=== PATIENT | female | born 1985 | race American Indian/Alaskan Native ===

== ENCOUNTER 2019-03-10 00:58 | Observation (INO) | payer OTHER ==
[2019-03-10] MEDS ORDERED: ASPIRIN PO ONE (01:21)
[2019-03-10] MEDS ORDERED: PEPCID IV ONE (01:49)
[2019-03-10] MEDS ORDERED: SUBLIMAZE IV ONE (01:49)
[2019-03-10] MEDS ORDERED: NITRO-BID 2% TP ONE (01:49)
[2019-03-10] MEDS ORDERED: ZOFRAN IV ONE (01:49)
--- NOTE | 2019-03-10 01:53 | Emergency Department Report ---
HPI - General Chief Complaint: Chest Pain Time Seen by Provider: 03/10/19 01:37 - HPI HPI: Room 7 The patient is a 34-year-old female presenting with chief complaint of chest is comfort. The patient states for the past 8 months she's had frequent chest discomfort described as a burning pain as well as a heaviness that sits on her chest. Patient states there has been shortness of breath, nausea/vomiting and weakness associated with this pain. Patient denies diaphoresis. Patient states she went to an urgent care facility last week and with subsequent sent to the ED. The patient states she was not admitted to the hospital but was given a referral to a cashier host/hostess which she has not yet seen. Patient currently gets her chest discomfort score of 9/10. Patient states she's never had a stress test or cardiac catheterization Location: [See above] Duration: [See above] Quality: [See above] Severity: [See above] Modifying factors: [see above] Context: [see above] Mode of transportation: [not driving] ED Past Medical Hx - Past Medical History Previous Medical History?: Yes Hx Hypertension: Yes Hx Diabetes: Yes Additional medical history: Frequent Abscess - Surgical History Past Surgical History?: Yes Additional Surgical History: LEEP, D & C, cataract surgery - Family History Family history: no significant - Social History Smoking Status: Never Smoker Substance Use Type: None (denies illicit drug use), Alcohol (occasional) - Medications Home Medications: Home Medications Medication Instructions Recorded Confirmed Last Taken Type glipiZIDE [glipiZIDE ER] 10 mg PO BID 11/17/13 11/17/13 Unknown History metFORMIN [Glucophage] 1,000 mg PO BID #60 tablet 11/18/13 Unknown Rx Lisinopril 10 mg PO DAILY 03/10/19 03/10/19 1 Day Ago History ~03/09/19 NovoLOG Mix 70/30 VIAL See Protocol SQ ACHS 03/10/19 03/10/19 1 Day Ago History ~03/09/19 ED Review of Systems ROS: Stated complaint: CP/HBP/LIGHTHEADED Other details as noted in HPI Constitutional: denies: diaphoresis Eyes: denies: eye pain ENT: denies: throat pain Respiratory: shortness of breath Cardiovascular: chest pain Endocrine: no symptoms reported Gastrointestinal: nausea, vomiting. denies: abdominal pain Genitourinary: denies: dysuria Musculoskeletal: denies: back pain Neurological: denies: headache Physical Exam - Physical Exam Vital Signs: Vital Signs 03/10/19 01:06 Temperature 98.0 F Pulse Rate 95 H Respiratory 18 Rate Blood Pressure 175/115 O2 Sat by Pulse 100 Oximetry Physical Exam: GENERAL: The patient is well-developed well-nourished female lying on stretcher not appearing to be in acute distress. [] HEENT: Normocephalic. Atraumatic. Extraocular motions are intact. Patient has moist mucous membranes. NECK: Supple. Trachea midline CHEST/LUNGS: Clear to auscultation. There is no respiratory distress noted. HEART/CARDIOVASCULAR: Regular. There is no tachycardia. There is no gallop rub or murmur. ABDOMEN: Abdomen is soft, nontender. Patient has normal bowel sounds. There is no abdominal distention. SKIN: There is no rash. There is no edema. There is no diaphoresis. NEURO: The patient is awake, alert, and oriented. The patient is cooperative. The patient has normal speech MUSCULOSKELETAL: There is no evidence of acute injury. ED Course Vital Signs 03/10/19 01:06 Temperature 98.0 F Pulse Rate 95 H Respiratory 18 Rate Blood Pressure 175/115 O2 Sat by Pulse 100 Oximetry ED Medical Decision Making - Lab Data Result diagrams: 03/10/19 02:03 03/10/19 02:03 Laboratory Tests 03/10/19 03/10/19 03/10/19 02:03 02:03 02:03 WBC 4.8 RBC 4.48 Hgb 13.0 Hct 38.1 MCV 85 MCH 29 MCHC 34 RDW 13.5 Plt Count 239 Lymph % (Auto) 36.2 H [place] % (Auto) 9.1 H Eos % (Auto) 1.7 Baso % (Auto) 1.0 Lymph # 1.7 [place] # 0.4 Eos # 0.1 Baso # 0.1 Seg Neutrophils % 52.0 Seg Neutrophils # 2.5 Sodium 132 L Potassium 3.9 Chloride 98.8 Carbon Dioxide 20 L Anion Gap 17 BUN 22 H Creatinine 0.9 Estimated GFR > 60 BUN/Creatinine Ratio 24 Glucose 326 H Calcium 8.7 Troponin T < 0.010 HCG, Qual Negative - EKG Data -: EKG Interpreted by Oh EKG shows normal: sinus rhythm Rate: normal - EKG Data When compared to previous EKG there are: previous EKG unavailable Interpretation: nonspecific ST-T wave alex (T-wave inversion in lead V2) - Radiology Data Radiology results: image reviewed (chest x-ray) interpreted by me: Chest x-ray-no focal infiltrates, no pneumothorax - Differential Diagnosis GERD, ACS, pericarditis, Critical care attestation.: If time is entered above; I have spent that time in minutes in the direct care of this critically ill patient, excluding procedure time. ED Disposition Clinical Impression: Chest pain Disposition: OP ADMIT IP TO THIS HOSP Is pt being admited?: Yes Does the pt Need Aspirin: Yes Condition: Fair Instructions: Chest Pain (ED) Referrals: HYACINTH KITCHEN MD [Primary Care Provider] - 3-5 Days Time of Disposition: 02:52 (hospitalist paged (Dr. Maricruz Lockett))
[2019-03-10 02:32] LABS: Basophils # (Auto) 0.1 K/mm3 (0.0-0.1); Eosinophils # (Auto) 0.1 K/mm3 (0.0-0.4); Eosinophils % (Auto) 1.7 % (0.0-4.3); Hematocrit 38.1 % (30.3-42.9); Lymphocytes # (Auto) 1.7 K/mm3 (1.2-5.4); Lymphocytes % (Auto) 36.2 % (13.4-35.0); Mean Corpuscular HGB Conc 34 % (30-34); Mean Corpuscular Volume 85 fl (79-97); Monocytes # (Auto) 0.4 K/mm3 (0.0-0.8); Monocytes % (Auto) 9.1 % (0.0-7.3); Platelet Count 239 K/mm3 (140-440); Red Blood Count 4.48 M/mm3 (3.65-5.03); Red Cell Distribution Width 13.5 % (13.2-15.2)
[2019-03-10 02:44] LABS: BUN/Creatinine Ratio 24; Blood Urea Nitrogen 22 mg/dL (7-17); Calcium 8.7 mg/dL (8.4-10.2); Hemolysis Index 34
--- NOTE | 2019-03-10 03:20 | XRay Report ---
PROCEDURE: XR CHEST 1V AP TECHNIQUE: Chest radiograph single view. HISTORY: Chest Pain COMPARISONS: None . FINDINGS: Heart: Normal. Mediastinum/Vessels: Normal. Lungs/Pleural space: Normal. Bony thorax: No acute osseous abnormality. Life support devices: None. IMPRESSION: No acute cardiopulmonary abnormality. This document is electronically signed by Raheel Ibarra MD., March 10 2019 03:18:15 AM ET
[2019-03-10] MEDS ORDERED: SODIUM CHLORIDE FLUSH SYRINGE 10 ML IV PRN (03:58)
[2019-03-10] MEDS ORDERED: ZOFRAN IV PRN (03:58)
[2019-03-10] MEDS ORDERED: TYLENOL PO PRN (03:58)
[2019-03-10] MEDS ORDERED: PERCOCET 5/325 PO PRN (03:58)
--- NOTE | 2019-03-10 04:06 | History and Physical Report ---
History of Present Illness Date of examination: 03/10/19 History of present illness: 34 year old woman with history of hypertension, diabetes comes to the emergency room with complaints of pain located in the epigastric area which he describes a sharp, burning sensation, intermittent, 5 minutes, radiating down to do her stomach, intensity 5/10, cannot identify exacerbating relating factors. No diaphoresis or palpitation Review of systems Constitutional: no weight loss, chills, fever Ears, eyes, nose, mouth and throat: no nasal congestion, no nasal discharge, no sinus pressure, no vision change, no red eye. Neck: No neck pain or rigidity. Cardiovascular: no palpitations, chest pain Respiratory: no cough, shortness of breath Gastrointestinal: no hematochezia, abdominal pain Genitourinary : no frequency , no hematuria Musculoskeletal: no joint swelling or muscle ache Integumentary: no rash, no pruritis Neurological: no parathesias, no focal weakness Endocrine: no cold or heat intolerance, no polyuria or polydipsia Hematologic/Lymphatic: no easy bruising, no easy bleeding, no gland swelling Allergic/Immunologic: no urticaria, no angioedema. PAST MEDICAL HISTORY: hypertension, diabetes PAST SURGICAL HISTORY: SOCIAL HISTORY: +alcohol, marijuana, no tobacco FAMILY HISTORY: Hypertension Medications and Allergies Allergies Allergy/AdvReac Type Severity Reaction Status Date / Time No Known Allergies Allergy Verified 11/17/13 22:15 Home Medications Medication Instructions Recorded Confirmed Last Taken Type glipiZIDE [glipiZIDE ER] 10 mg PO BID 11/17/13 03/10/19 1 Day Ago History ~03/09/19 metFORMIN [Glucophage] 1,000 mg PO BID #60 tablet 11/18/13 03/10/19 1 Day Ago Rx ~03/09/19 Lisinopril 10 mg PO DAILY 03/10/19 03/10/19 1 Day Ago History ~03/09/19 NovoLOG Mix 70/30 VIAL See Protocol SQ ACHS 03/10/19 03/10/19 1 Day Ago History ~03/09/19 Active Meds: Active Medications Acetaminophen (Tylenol) 650 mg PO Q4H PRN PRN Reason: Pain MILD(1-3)/Fever >100.5/NORRIS Enoxaparin Sodium (Lovenox) 30 mg SUB-Q QDAY ILENE Ondansetron HCl (Zofran) 4 mg IV Q8H PRN PRN Reason: Nausea And Vomiting Oxycodone/Acetaminophen (Percocet 5/325) 1 tab PO Q6H PRN PRN Reason: Pain, Moderate (4-6) Sodium Chloride (Sodium Chloride Flush Syringe 10 Ml) 10 ml IV BID ILENE Sodium Chloride (Sodium Chloride Flush Syringe 10 Ml) 10 ml IV PRN PRN PRN Reason: LINE FLUSH Exam - Physical Exam Narrative exam: General Apperance: The patient lying in bed, breathing comfortable HEENT: Normocephalic, atraumatic. Pupils equally round and reactive to light, EOMI, no sclericterus or JVD or thyromegaly or nodule. , no carotid bruit, mucous membranes moist, no exudate or erythema Heart: S1-S2, regular is rhythm Lungs: Clear to auscultation bilaterally, breathing comfortable Abdomen: Positive bowel sounds, soft, nontender, nondistended, no organomegaly Extremities: No edema cyanosis clubbing Skin: no rash, nodule, warm and dry Neuro: cranial nerves 2-12 intact, speech is fluent, motor/sensory intact - Constitutional Vitals: Temp Pulse Resp BP Pulse Ox 98.0 F 92 H 17 141/90 95 03/10/19 01:06 03/10/19 03:30 03/10/19 03:30 03/10/19 03:30 03/10/19 03:30 Results - Labs CBC & Chem 7: 03/10/19 04:07 03/10/19 02:03 Labs: Abnormal lab results 03/10/19 03/10/19 Range/Units 02:03 02:03 Lymph % (Auto) 36.2 H (13.4-35.0) % [place] % (Auto) 9.1 H (0.0-7.3) % Sodium 132 L (137-145) mmol/L Carbon Dioxide 20 L (22-30) mmol/L BUN 22 H (7-17) mg/dL Glucose 326 H (65-100) mg/dL - Imaging and Cardiology EKG: image reviewed Chest x-ray: report reviewed Assessment and Plan Assessment Chest pain Hypertension Diabetes Hyponatremia Plan Recommend medicine Check cardiac enzymes, stress test check fingersticks, start initiate insulin sliding scale Start fluid, Percocet, aspirin, DVT prophalaxis
[2019-03-10] MEDS ORDERED: D50W (25GM) Syringe IV PRN (04:08)
[2019-03-10 04:23] LABS: Basophils % (Auto) 0.4 % (0.0-1.8); Eosinophils # (Auto) 0.1 K/mm3 (0.0-0.4); Hematocrit 35.7 % (30.3-42.9); Hemoglobin 12.1 gm/dl (10.1-14.3); Lymphocytes # (Auto) 2.1 K/mm3 (1.2-5.4); Lymphocytes % (Auto) 39.9 % (13.4-35.0); Mean Corpuscular HGB Conc 34 % (30-34); Mean Corpuscular Volume 85 fl (79-97); Monocytes # (Auto) 0.4 K/mm3 (0.0-0.8); Monocytes % (Auto) 8.6 % (0.0-7.3); Platelet Count 229 K/mm3 (140-440); Red Blood Count 4.18 M/mm3 (3.65-5.03); Red Cell Distribution Width 13.5 % (13.2-15.2)
[2019-03-10 04:53] LABS: BUN/Creatinine Ratio 23; Blood Urea Nitrogen 21 mg/dL (7-17); Calcium 8.7 mg/dL (8.4-10.2); Hemolysis Index 3
[2019-03-10] MEDS ORDERED: NACL 0.45% 1000 ML 1,000 ML IV SCH (05:00)
[2019-03-10 06:30] LABS: Creatine Kinase MB 2.5 ng/mL (0.0-4.0)
[2019-03-10] MEDS: HumaLOG SUB-Q SCH ×2 (08:08→12:43)
[2019-03-10] MEDS ORDERED: BABY ASPIRIN PO SCH (10:00)
[2019-03-10] MEDS ORDERED: SODIUM CHLORIDE FLUSH SYRINGE 10 ML IV SCH (10:00)
[2019-03-10] MEDS ORDERED: LOVENOX SUB-Q SCH ×2 (10:00)
[2019-03-10 11:43] VITALS: BP 140/94
--- NOTE | 2019-03-10 13:51 | Discharge Summary ---
Providers - Providers Date of Admission: 03/10/19 03:58 Date of discharge: 03/10/19 Attending physician: DANYEL WILSON Primary care physician: [facility] MD PETER Hospitalization Condition: Fair Hospital course: Patient is 34 yo presented with chest pain. She was seen in ED. Her cardiac enzymes were normal. She was admitted to rule out acute coronary syndrome.Stress test done later same day was normal. Chest pain due to GERD. She was then discharged home. Disposition: - TO HOME OR SELFCARE - Discharge Diagnoses (1) HTN (hypertension) Status: Acute (2) Diabetes mellitus type 2 in obese Status: Acute (3) GERD (gastroesophageal reflux disease) Status: Acute (4) Chest pain Status: Acute Core Measure Documentation - Palliative Care Palliative Care/ Comfort Measures: Not Applicable - Core Measures Any of the following diagnoses?: none Exam - Constitutional Vitals: Temp Pulse Resp BP Pulse Ox 98.0 F 84 18 140/94 98 03/10/19 11:27 03/10/19 06:20 03/10/19 11:27 03/10/19 11:27 03/10/19 11:06 Plan Activity: no restrictions Diet: low fat, low cholesterol, low salt Additional Instructions: 1.Follow up with PCP or Darius zuñiga in 1 week. 2.Follow up with Dr. Steven Stokes, GI in 1 week Follow up with: DARIUS KITCHEN MD [Primary Care Provider] - 3-5 Days Prescriptions: Omeprazole 20 mg PO DAILY #30 capsule.
--- NOTE | 2019-03-11 00:41 | Treadmill Report ---
EXERCISE STRESS TEST REPORT The patient exercised for 8 minutes of a Az protocol, reaching stage 3 and achieving 9 mets. Peak heart rate was 150 beats per minute. Peak blood pressure 160 mmHg systolic. There was no chest pain. Test was stopped for fatigue. Baseline ECG was sinus rhythm. With exercise, there are no ST changes of ischemia. No significant dysrhythmias were noted. CONCLUSION: 1. Above average exercise capacity. 2. No chest pain. 3. No ST changes of ischemia. 4. No significant dysrhythmias. 5. This is a normal exercise ECG test. JOB# [id number] CA/NTS
== END 2019-03-10 15:43 | disposition home or self-care (01) ==
LOC: ED 00:58 → 4A 03:58
PROVIDERS: ADMIT Internal Medicine; ATTEND Internal Medicine
DX: R07.89 Other chest pain (principal); I10 Essential (primary) hypertension; E11.9 Type 2 diabetes mellitus without complications; E87.1 Hypo-osmolality and hyponatremia; Z98.890 Other specified postprocedural states
CPT/HCPCS: 36415; 71045; 80048; 82550; 82553; 82962; 84484; 84703; 85025; 93005; 93010; 93017; 96372; 96374; 96375; 99284; G0378; J2405; J3010; J1815

== ENCOUNTER 2021-06-03 12:52 | Emergency (ER) | payer OTHER ==
--- NOTE | 2021-06-03 15:14 | Emergency Department Report ---
- General Chief complaint: Skin/Abscess/Foreign Body Stated complaint: LEFT LEG PAIN/SWOLLEN Time Seen by Provider: 06/03/21 15:00 Source: patient Mode of arrival: Ambulatory Limitations: No Limitations - History of Present Illness Initial comments: 36-year-old female presents to the ER today with complaints of a abscess to her left thigh. She states that it started a small a few days ago has since increased in size and has become more painful. She reports associated erythema and some warmth to the area. She denies any drainage. Patient states that she has had abscesses in the past because back then she had uncontrollable diabetes. She states that she had stopped getting abscesses when she had gone her blood sugar under control, but in the past few months she has been under a lot of stress with recent loss of family members and has not been controlling her blood sugars as well. She denies any fever at home. She states that she is a type II diabetic, currently being treated with insulin and oral medications. She states that she did not check her blood sugar this morning. complaint: abscess/boil -: days(s) - Related Data Home Medications Medication Instructions Recorded Confirmed Last Taken glipiZIDE [glipiZIDE ER] 10 mg PO BID 11/17/13 03/10/19 1 Day Ago ~03/09/19 Lisinopril 10 mg PO DAILY 03/10/19 03/10/19 1 Day Ago ~03/09/19 NovoLOG Mix 70/30 VIAL See Protocol SQ ACHS 03/10/19 03/10/19 1 Day Ago ~03/09/19 Previous Rx's Medication Instructions Recorded Last Taken Type metFORMIN [Glucophage] 1,000 mg PO BID #60 tablet 11/18/13 1 Day Ago Rx ~03/09/19 Omeprazole 20 mg PO DAILY #30 capsule. 03/10/19 Unknown Rx HYDROcodone/APAP 5-325 [[place] 1 each PO Q6HR PRN #12 tablet 06/03/21 Unknown Rx 5/325] Ibuprofen [Motrin] 600 mg PO Q8H PRN #30 tablet 06/03/21 Unknown Rx Sulfamethoxazole/Trimethoprim 1 each PO BID #20 tablet 06/03/21 Unknown Rx [Bactrim DS TAB] cephALEXin [Keflex] 500 mg PO Q6HR #40 capsule 06/03/21 Unknown Rx Allergies Allergy/AdvReac Type Severity Reaction Status Date / Time No Known Allergies Allergy Verified 11/17/13 22:15 Abscess Boil HPI - HPI Chief Complaint: Skin/Abscess/Foreign Body Stated Complaint: LEFT LEG PAIN/SWOLLEN Time Seen by Provider: 06/03/21 15:00 Home Medications: Home Medications Medication Instructions Recorded Confirmed Last Taken glipiZIDE [glipiZIDE ER] 10 mg PO BID 11/17/13 03/10/19 1 Day Ago ~03/09/19 Lisinopril 10 mg PO DAILY 03/10/19 03/10/19 1 Day Ago ~03/09/19 NovoLOG Mix 70/30 VIAL See Protocol SQ ACHS 03/10/19 03/10/19 1 Day Ago ~03/09/19 Previous Rx's Medication Instructions Recorded Last Taken Type metFORMIN [Glucophage] 1,000 mg PO BID #60 tablet 11/18/13 1 Day Ago Rx ~03/09/19 Omeprazole 20 mg PO DAILY #30 capsule. 03/10/19 Unknown Rx HYDROcodone/APAP 5-325 [[place] 1 each PO Q6HR PRN #12 tablet 06/03/21 Unknown Rx 5/325] Ibuprofen [Motrin] 600 mg PO Q8H PRN #30 tablet 06/03/21 Unknown Rx Sulfamethoxazole/Trimethoprim 1 each PO BID #20 tablet 06/03/21 Unknown Rx [Bactrim DS TAB] cephALEXin [Keflex] 500 mg PO Q6HR #40 capsule 06/03/21 Unknown Rx Allergies/Adverse Reactions: Allergies Allergy/AdvReac Type Severity Reaction Status Date / Time No Known Allergies Allergy Verified 11/17/13 22:15 ED Review of Systems ROS: Stated complaint: LEFT LEG PAIN/SWOLLEN Other details as noted in HPI Constitutional: denies: chills, fever Eyes: denies: eye pain, eye discharge, vision change ENT: denies: ear pain, throat pain, dental pain, hearing loss, epistaxis Respiratory: denies: cough, orthopnea, shortness of breath, SOB with exertion, SOB at rest, wheezing Cardiovascular: denies: chest pain, palpitations, dyspnea on exertion, edema, syncope, paroxysmal nocturnal dyspnea Gastrointestinal: denies: abdominal pain, nausea, vomiting, diarrhea, constipation, hematemesis, melena, hematochezia Genitourinary: denies: urgency, dysuria, frequency, hematuria, discharge, abnormal menses, dyspareunia Musculoskeletal: myalgia. denies: back pain, joint swelling, arthralgia Skin: rash, other (abscess left thigh). denies: lesions, pruritus Neurological: denies: headache, weakness, paresthesias, confusion, abnormal gait, vertigo Psychiatric: denies: anxiety, depression, auditory hallucinations, visual hallucinations, homicidal thoughts Hematological/Lymphatic: denies: easy bleeding, easy bruising ED Past Medical Hx - Past Medical History Hx Hypertension: Yes Hx Diabetes: Yes Additional medical history: Frequent Abscess - Surgical History Past Surgical History?: Yes Additional Surgical History: LEEP, D & C, cataract surgery - Social History Smoking Status: Current Every Day Smoker - Medications Home Medications: Home Medications Medication Instructions Recorded Confirmed Last Taken Type glipiZIDE [glipiZIDE ER] 10 mg PO BID 11/17/13 03/10/19 1 Day Ago History ~03/09/19 metFORMIN [Glucophage] 1,000 mg PO BID #60 tablet 11/18/13 03/10/19 1 Day Ago Rx ~03/09/19 Lisinopril 10 mg PO DAILY 03/10/19 03/10/19 1 Day Ago History ~03/09/19 NovoLOG Mix 70/30 VIAL See Protocol SQ ACHS 03/10/19 03/10/19 1 Day Ago History ~03/09/19 Omeprazole 20 mg PO DAILY #30 capsule. 03/10/19 Unknown Rx HYDROcodone/APAP 5-325 [[place] 1 each PO Q6HR PRN #12 tablet 06/03/21 Unknown Rx 5/325] Ibuprofen [Motrin] 600 mg PO Q8H PRN #30 tablet 06/03/21 Unknown Rx Sulfamethoxazole/Trimethoprim 1 each PO BID #20 tablet 06/03/21 Unknown Rx [Bactrim DS TAB] cephALEXin [Keflex] 500 mg PO Q6HR #40 capsule 06/03/21 Unknown Rx ED Physical Exam - General Limitations: No Limitations General appearance: alert, in no apparent distress - Head Head exam: Present: atraumatic, normocephalic, normal inspection - Eye Eye exam: Present: normal appearance, PERRL, EOMI Pupils: Present: normal accommodation - ENT ENT exam: Present: normal exam, mucous membranes moist - Neck Neck exam: Present: normal inspection, full ROM - Respiratory Respiratory exam: Present: normal lung sounds bilaterally. Absent: respiratory distress, wheezes, rales, rhonchi - Cardiovascular Cardiovascular Exam: Present: regular rate, normal rhythm, normal heart sounds - GI/Abdominal GI/Abdominal exam: Present: soft. Absent: distended, tenderness, guarding, rebound - Extremities Exam Extremities exam: Present: other (erythematous, indurated, with central pus fill blister but no palpable fluctuance noted distal anterior lateral left thigh. Th ere is no streaking redeness or significant lymphangitis) - Neurological Exam Neurological exam: Present: alert, oriented X3, CN II-XII intact, normal gait - Psychiatric Psychiatric exam: Present: normal affect, normal mood ED Course Vital Signs 06/03/21 06/03/21 14:17 17:23 Temperature 99.1 F 98.3 F Pulse Rate 115 H 105 H Respiratory 15 18 Rate Blood Pressure 157/99 130/93 O2 Sat by Pulse 100 100 Oximetry ED Medical Decision Making - Lab Data Result diagrams: 06/03/21 15:38 06/03/21 15:38 - Medical Decision Making Patient BS improving after IV fluids, and also she admitted that she hasn't taken any of her diabetic medications today. No evidence of DKA today. Her wbc is also normal. She has remained afebriled and her HR and BP improved. She is not toxic or ill-appearing. She is not in any significant distress. She is neurologically intact. She has a ~6cm x4cm cellulitic/indurated area to distal left thigh but no apparent fluctuance, no streaking or significant lymphangitis. I&D not indicated at this time. Discussed all lab results with patient. Discussed with her the importance of being compliant with her her diabetic medication daily. Also recommend that she take some medication insulin she gets home. She will be started on Keflex and Bactrim and also recommend doing warm compresses and elevating her leg as often as possible. Patient expressed understanding of all instructions and agree with plan. Patient stable at time of discharge - Differential Diagnosis DKA, sepsis, Cellulitis, abscess Critical care attestation.: If time is entered above; I have spent that time in minutes in the direct care of this critically ill patient, excluding procedure time. ED Disposition Clinical Impression: Abscess of left thigh, Diabetes mellitus type 2 in obese Disposition: HOME / SELF CARE / HOMELESS Is pt being admited?: No Does the pt Need Aspirin: No Condition: Stable Instructions: Skin Abscess, Type 2 Diabetes Mellitus, Self Care, Adult, [id number], Diabetes Mellitus Type 2 in Adults (ED) Additional Instructions: I recommend that you take the Bactrim and the Keflex as prescribed. Recommend that you take your insulin and your oral medication for your diabetes as soon as you get home tonight. Recommend that you do warm compresses 2-3 times per day to the area. Take the hydrocodone and ibuprofen as prescribed. Elevate your leg as often as possible. Follow-up closely with your primary care doctor. Return to the ER if your symptoms changes or worsens in any way. Prescriptions: Sulfamethoxazole/Trimethoprim [Bactrim DS TAB] 1 each PO BID #20 tablet cephALEXin [Keflex] 500 mg PO Q6HR #40 capsule Ibuprofen [Motrin] 600 mg PO Q8H PRN #30 tablet PRN Reason: Pain HYDROcodone/APAP 5-325 [[place] 5/325] 1 each PO Q6HR PRN #12 tablet PRN Reason: Pain Referrals: PRIMARY CARE,MD [Primary Care Provider] - 3-5 Days Forms: Work/School Release Form(ED) Time of Disposition: 19:32
[2021-06-03] MEDS ORDERED: KETOROLAC 30 MG/1 ML INJ IV ONE (15:20)
[2021-06-03] MEDS ORDERED: SODIUM CHLORIDE 0.9% 1000 ML 1,000 ML IV ONE (15:31)
[2021-06-03 16:06] LABS: Basophils % (Auto) 0.3 % (0.0-1.8); Eosinophils % (Auto) 0.5 % (0.0-4.3); Hematocrit 39.9 % (30.3-42.9); Hemoglobin 13.7 gm/dl (10.1-14.3); Lymphocytes # (Auto) 1.5 K/mm3 (1.2-5.4); Lymphocytes % (Auto) 19.1 % (13.4-35.0); Mean Corpuscular HGB Conc 34 % (30-34); Mean Corpuscular Volume 84 fl (79-97); Monocytes # (Auto) 0.5 K/mm3 (0.0-0.8); Platelet Count 283 K/mm3 (140-440); Red Blood Count 4.73 M/mm3 (3.65-5.03); Red Cell Distribution Width 13.1 % (13.2-15.2)
[2021-06-03 16:25] LABS: Alanine Aminotransferase 10 units/L (7-56); Albumin 3.5 g/dL (3.9-5); BUN/Creatinine Ratio 17; Blood Urea Nitrogen 15 mg/dL (7-17); Hemolysis Index 1
[2021-06-03 17:35] VITALS: BP 130/93
== END 2021-06-03 19:58 | disposition home or self-care (01) ==
LOC: ED 12:52
DX: L02.416 Cutaneous abscess of left lower limb (principal); E11.8 Type 2 diabetes mellitus with unspecified complications; E66.9 Obesity, unspecified; I10 Essential (primary) hypertension; Z98.890 Other specified postprocedural states; F17.200 Nicotine dependence, unspecified, uncomplicated
CPT/HCPCS: 36415; 80053; 82962; 85025; 96361; 96374; 99283; J1885; J7030

== ENCOUNTER 2022-01-10 17:30 | Emergency (ER) | payer SELFPAY ==
[2022-01-10] MEDS ORDERED: ASPIRIN 81 MG TAB CHEW PO ONE (18:33)
[2022-01-10] MEDS ORDERED: SODIUM CHLORIDE 0.9% 1000 ML 1,000 ML IV ONE (18:33)
[2022-01-10] MEDS ORDERED: MORPHINE 2 MG/1 ML INJ IV ONE (18:35)
[2022-01-10 19:20] LABS: Basophils % (Auto) 0.5 % (0.0-1.8); Eosinophils # (Auto) 0.1 K/mm3 (0.0-0.4); Eosinophils % (Auto) 1.3 % (0.0-4.3); Hematocrit 36.8 % (30.3-42.9); Hemoglobin 12.7 gm/dl (10.1-14.3); Lymphocytes # (Auto) 1.7 K/mm3 (1.2-5.4); Lymphocytes % (Auto) 31.9 % (13.4-35.0); Mean Corpuscular HGB Conc 35 % (30-34); Mean Corpuscular Volume 85 fl (79-97); Monocytes # (Auto) 0.5 K/mm3 (0.0-0.8); Monocytes % (Auto) 9.2 % (0.0-7.3); Platelet Count 208 K/mm3 (140-440); Red Blood Count 4.35 M/mm3 (3.65-5.03)
[2022-01-10 19:35] LABS: INR 0.89 (0.87-1.13)
[2022-01-10 19:36] LABS: Partial Thromboplastin Time 24.1 Sec. (24.2-36.6)
[2022-01-10 19:43] LABS: Alanine Aminotransferase 8 units/L (7-56); Albumin 3.6 g/dL (3.9-5); BUN/Creatinine Ratio 22; Blood Urea Nitrogen 26 mg/dL (7-17); Calcium 8.9 mg/dL (8.4-10.2); Hemolysis Index 11
--- NOTE | 2022-01-10 19:44 | Emergency Department Report ---
<PAPITO YEAGER - Last Filed: 01/10/22 21:19> ED Chest Pain HPI - General Chief Complaint: Chest Pain Stated Complaint: CHEST PAIN/DIABETIC Source: patient Mode of arrival: Wheelchair Limitations: No Limitations - History of Present Illness Initial Comments: Is a 36-year-old female presents emergency department complaint of chest pain. Patient reports that her chest pain initially started 3 to 4 months ago. She states that her primary care doctor did an EKG that showed it was normal. She states however the past few days her pain has worsened she notes palpitations. She also has a heavy feeling in her chest. She reports her pain today feels like pressure. She states is 8 out of 10. It is in the front of her chest and does not radiate. She does not have any family history of cardiac disease. She states she does exist with history of blood clot. She denies any leg swelling or leg pain. She cannot note any that makes her pain better or worse. Severity scale (0 -10): 8 - Related Data Home Medications Medication Instructions Recorded Confirmed Last Taken glipiZIDE [glipiZIDE ER] 10 mg PO BID 11/17/13 03/10/19 1 Day Ago ~03/09/19 Lisinopril 10 mg PO DAILY 03/10/19 03/10/19 1 Day Ago ~03/09/19 NovoLOG Mix 70/30 VIAL See Protocol SQ ACHS 03/10/19 03/10/19 1 Day Ago ~03/09/19 Previous Rx's Medication Instructions Recorded Last Taken Type metFORMIN [Glucophage] 1,000 mg PO BID #60 tablet 11/18/13 1 Day Ago Rx ~03/09/19 Omeprazole 20 mg PO DAILY #30 capsule. 03/10/19 Unknown Rx HYDROcodone/APAP 5-325 [[place] 1 each PO Q6HR PRN #12 tablet 06/03/21 Unknown Rx 5/325] Ibuprofen [Motrin] 600 mg PO Q8H PRN #30 tablet 06/03/21 Unknown Rx Sulfamethoxazole/Trimethoprim 1 each PO BID #20 tablet 06/03/21 Unknown Rx [Bactrim DS TAB] cephALEXin [Keflex] 500 mg PO Q6HR #40 capsule 06/03/21 Unknown Rx Allergies Allergy/AdvReac Type Severity Reaction Status Date / Time No Known Allergies Allergy Verified 01/10/22 18:06 Heart Score - HEART Score History: Slightly suspicious EKG: Normal Age: < 45 Risk factors: 1-2 risk factors Troponin: < normal limit HEART Score: 1 - EKG Read Time Time EKG Completed: 17:56 EKG Read Time: 17:59 ED Review of Systems Constitutional: denies: chills, fever Eyes: denies: eye pain, eye discharge, vision change ENT: denies: ear pain, throat pain Respiratory: denies: cough, shortness of breath, wheezing Cardiovascular: chest pain, palpitations Endocrine: no symptoms reported Gastrointestinal: denies: abdominal pain, nausea, diarrhea Genitourinary: denies: urgency, dysuria, discharge Musculoskeletal: denies: back pain, joint swelling, arthralgia Skin: denies: rash, lesions Neurological: denies: headache, weakness, paresthesias Psychiatric: denies: anxiety, depression Hematological/Lymphatic: denies: easy bleeding, easy bruising ED Past Medical Hx - Past Medical History Previous Medical History?: Yes Hx Hypertension: Yes Hx Diabetes: Yes Additional medical history: Frequent Abscess - Surgical History Additional Surgical History: LEEP, D & C, cataract surgery - Social History Smoking Status: Current Every Day Smoker - Medications Home Medications: Home Medications Medication Instructions Recorded Confirmed Last Taken Type glipiZIDE [glipiZIDE ER] 10 mg PO BID 11/17/13 03/10/19 1 Day Ago History ~03/09/19 metFORMIN [Glucophage] 1,000 mg PO BID #60 tablet 11/18/13 03/10/19 1 Day Ago Rx ~03/09/19 Lisinopril 10 mg PO DAILY 03/10/19 03/10/19 1 Day Ago History ~03/09/19 NovoLOG Mix 70/30 VIAL See Protocol SQ ACHS 03/10/19 03/10/19 1 Day Ago History ~03/09/19 Omeprazole 20 mg PO DAILY #30 capsule. 03/10/19 Unknown Rx HYDROcodone/APAP 5-325 [[place] 1 each PO Q6HR PRN #12 tablet 06/03/21 Unknown Rx 5/325] Ibuprofen [Motrin] 600 mg PO Q8H PRN #30 tablet 06/03/21 Unknown Rx Sulfamethoxazole/Trimethoprim 1 each PO BID #20 tablet 06/03/21 Unknown Rx [Bactrim DS TAB] cephALEXin [Keflex] 500 mg PO Q6HR #40 capsule 06/03/21 Unknown Rx ED Physical Exam - General Limitations: No Limitations General appearance: alert, in no apparent distress - Head Head exam: Present: atraumatic, normocephalic - Eye Eye exam: Present: normal appearance - ENT ENT exam: Present: mucous membranes moist - Neck Neck exam: Present: normal inspection - Respiratory Respiratory exam: Present: normal lung sounds bilaterally. Absent: respiratory distress - Cardiovascular Cardiovascular Exam: Present: tachycardia. Absent: systolic murmur, diastolic murmur, rubs, gallop - GI/Abdominal GI/Abdominal exam: Present: soft, normal bowel sounds - Extremities Exam Extremities exam: Present: normal inspection - Back Exam Back exam: Present: normal inspection - Neurological Exam Neurological exam: Present: alert, oriented X3 - Psychiatric Psychiatric exam: Present: normal affect, normal mood - Skin Skin exam: Present: warm, dry, intact, normal color. Absent: rash ED Course - Reevaluation(s) Reevaluation #1: 01/10/22 20:14 Patient has no evidence of DKA. She does have pseudohyponatremia secondary to her hyperglycemia. Patient CO2 is 21. Patient's thyroid function is normal. Her dimer is 235 which is well below 250 and 500 levels which would be concerning for DVT or PE. Given this plan to continue fluid hydration, repeat troponin patient likely to be discharged. ED Medical Decision Making - Lab Data Result diagrams: 01/10/22 18:54 01/10/22 18:54 - Medical Decision Making Patient is a 36-year-old female presents to emergency department complaint chest pain. Patient has history of hypertension and diabetes. Patient reports no family history of such. Patient heart score is 1. Also considered is pulmonary embolism. Dimer is collected. Plan for serial troponins, EKGs patient has been given aspirin and pain control. ED Disposition Clinical Impression: Chest pain, Hyperglycemia Disposition: HOME / SELF CARE / HOMELESS Is pt being admited?: No Does the pt Need Aspirin: Yes Condition: Stable Instructions: Nonspecific Chest Pain, Adult, Hyperglycemia Referrals: JOSE R GALLO MD [Staff Physician] - 3-5 Days Forms: Accompanied Note, Work/School Release Form(ED) <AMBAR BROWNLEE - Last Filed: 01/13/22 21:35> ED Review of Systems ROS: Stated complaint: CHEST PAIN/DIABETIC Other details as noted in HPI ED Course Vital Signs 01/10/22 01/10/22 01/10/22 17:47 18:09 18:13 Temperature 98.0 F 97.0 F L Pulse Rate 109 H 107 H 108 H Respiratory 18 18 Rate Blood Pressure 137/82 Blood Pressure 144/90 [Right] O2 Sat by Pulse 100 100 Oximetry 01/10/22 01/10/22 19:17 20:00 Temperature 98 F Pulse Rate 84 Respiratory 18 18 Rate Blood Pressure Blood Pressure 116/78 [Right] O2 Sat by Pulse 100 Oximetry ED Medical Decision Making - Lab Data Result diagrams: 01/10/22 18:54 01/10/22 18:54 Laboratory Tests 01/10/22 01/10/22 01/10/22 18:16 18:54 18:54 WBC 5.4 RBC 4.35 Hgb 12.7 Hct 36.8 MCV 85 MCH 29 MCHC 35 H RDW 13.0 L Plt Count 208 Lymph % (Auto) 31.9 [place] % (Auto) 9.2 H Eos % (Auto) 1.3 Baso % (Auto) 0.5 Lymph # (Auto) 1.7 [place] # (Auto) 0.5 Eos # (Auto) 0.1 Baso # (Auto) 0.0 Seg Neutrophils % 57.1 Seg Neutrophils # 3.1 PT INR APTT D-Dimer VBG pH Sodium Potassium Chloride Carbon Dioxide Anion Gap BUN Creatinine Estimated GFR BUN/Creatinine Ratio Glucose POC Glucose 430 H Ketones Quantitative Calcium Magnesium Total Bilirubin AST ALT Alkaline Phosphatase Troponin T Total Protein Albumin Albumin/Globulin Ratio Lipase TSH HCG, Qual Negative 01/10/22 01/10/22 01/10/22 18:54 18:54 18:54 WBC RBC Hgb Hct MCV MCH MCHC RDW Plt Count Lymph % (Auto) [place] % (Auto) Eos % (Auto) Baso % (Auto) Lymph # (Auto) [place] # (Auto) Eos # (Auto) Baso # (Auto) Seg Neutrophils % Seg Neutrophils # PT 13.0 INR 0.89 APTT 24.1 L D-Dimer 235.54 H VBG pH Sodium 128 L Potassium 4.7 Chloride 95.8 L Carbon Dioxide 21 L Anion Gap 16 BUN 26 H Creatinine 1.2 Estimated GFR > 60 BUN/Creatinine Ratio 22 Glucose 456 H POC Glucose Ketones Quantitative Calcium 8.9 Magnesium Total Bilirubin 0.20 AST 8 ALT 8 Alkaline Phosphatase 52 Troponin T < 0.010 Total Protein 7.1 Albumin 3.6 L Albumin/Globulin Ratio 1.0 Lipase 145 H TSH 1.500 HCG, Qual 01/10/22 01/10/22 01/10/22 18:54 19:46 20:16 WBC RBC Hgb Hct MCV MCH MCHC RDW Plt Count Lymph % (Auto) [place] % (Auto) Eos % (Auto) Baso % (Auto) Lymph # (Auto) [place] # (Auto) Eos # (Auto) Baso # (Auto) Seg Neutrophils % Seg Neutrophils # PT INR APTT D-Dimer VBG pH 7.297 L Sodium Potassium Chloride Carbon Dioxide Anion Gap BUN Creatinine Estimated GFR BUN/Creatinine Ratio Glucose POC Glucose Ketones Quantitative Negative Calcium Magnesium 2.00 Total Bilirubin AST ALT Alkaline Phosphatase Troponin T Total Protein Albumin Albumin/Globulin Ratio Lipase TSH HCG, Qual 01/10/22 22:49 WBC RBC Hgb Hct MCV MCH MCHC RDW Plt Count Lymph % (Auto) [place] % (Auto) Eos % (Auto) Baso % (Auto) Lymph # (Auto) [place] # (Auto) Eos # (Auto) Baso # (Auto) Seg Neutrophils % Seg Neutrophils # PT INR APTT D-Dimer VBG pH Sodium Potassium Chloride Carbon Dioxide Anion Gap BUN Creatinine Estimated GFR BUN/Creatinine Ratio Glucose POC Glucose Ketones Quantitative Calcium Magnesium Total Bilirubin AST ALT Alkaline Phosphatase Troponin T < 0.010 Total Protein Albumin Albumin/Globulin Ratio Lipase TSH HCG, Qual CTA chest: no PE Repeat blood glucose 380 Patient denies abdominal pain and is not tender in abd - Medical Decision Making Patient care transferred to [place] from @ 9:00 pm. Patient here with complaints of CP, SOB and palpitations. Deniesabdominal pain. On exam: Lungs with good air entry and CTAB Heart: RRR, no rub or gallop Abd: non tender; non distended; normal BS Laboratory Tests 01/10/22 01/10/22 01/10/22 18:16 18:54 18:54 WBC 5.4 RBC 4.35 Hgb 12.7 Hct 36.8 MCV 85 MCH 29 MCHC 35 H RDW 13.0 L Plt Count 208 Lymph % (Auto) 31.9 [place] % (Auto) 9.2 H Eos % (Auto) 1.3 Baso % (Auto) 0.5 Lymph # (Auto) 1.7 [place] # (Auto) 0.5 Eos # (Auto) 0.1 Baso # (Auto) 0.0 Seg Neutrophils % 57.1 Seg Neutrophils # 3.1 PT INR APTT D-Dimer VBG pH Sodium Potassium Chloride Carbon Dioxide Anion Gap BUN Creatinine Estimated GFR BUN/Creatinine Ratio Glucose POC Glucose 430 H Ketones Quantitative Calcium Magnesium Total Bilirubin AST ALT Alkaline Phosphatase Troponin T Total Protein Albumin Albumin/Globulin Ratio Lipase TSH HCG, Qual Negative 01/10/22 01/10/22 01/10/22 18:54 18:54 18:54 WBC RBC Hgb Hct MCV MCH MCHC RDW Plt Count Lymph % (Auto) [place] % (Auto) Eos % (Auto) Baso % (Auto) Lymph # (Auto) [place] # (Auto) Eos # (Auto) Baso # (Auto) Seg Neutrophils % Seg Neutrophils # PT 13.0 INR 0.89 APTT 24.1 L D-Dimer 235.54 H VBG pH Sodium 128 L Potassium 4.7 Chloride 95.8 L Carbon Dioxide 21 L Anion Gap 16 BUN 26 H Creatinine 1.2 Estimated GFR > 60 BUN/Creatinine Ratio 22 Glucose 456 H POC Glucose Ketones Quantitative Calcium 8.9 Magnesium Total Bilirubin 0.20 AST 8 ALT 8 Alkaline Phosphatase 52 Troponin T < 0.010 Total Protein 7.1 Albumin 3.6 L Albumin/Globulin Ratio 1.0 Lipase 145 H TSH 1.500 HCG, Qual 01/10/22 01/10/22 01/10/22 18:54 19:46 20:16 WBC RBC Hgb Hct MCV MCH MCHC RDW Plt Count Lymph % (Auto) [place] % (Auto) Eos % (Auto) Baso % (Auto) Lymph # (Auto) [place] # (Auto) Eos # (Auto) Baso # (Auto) Seg Neutrophils % Seg Neutrophils # PT INR APTT D-Dimer VBG pH 7.297 L Sodium Potassium Chloride Carbon Dioxide Anion Gap BUN Creatinine Estimated GFR BUN/Creatinine Ratio Glucose POC Glucose Ketones Quantitative Negative Calcium Magnesium 2.00 Total Bilirubin AST ALT Alkaline Phosphatase Troponin T Total Protein Albumin Albumin/Globulin Ratio Lipase TSH HCG, Qual 01/10/22 01/10/22 22:06 22:49 WBC RBC Hgb Hct MCV MCH MCHC RDW Plt Count Lymph % (Auto) [place] % (Auto) Eos % (Auto) Baso % (Auto) Lymph # (Auto) [place] # (Auto) Eos # (Auto) Baso # (Auto) Seg Neutrophils % Seg Neutrophils # PT INR APTT D-Dimer VBG pH Sodium Potassium Chloride Carbon Dioxide Anion Gap BUN Creatinine Estimated GFR BUN/Creatinine Ratio Glucose POC Glucose 338 H Ketones Quantitative Calcium Magnesium Total Bilirubin AST ALT Alkaline Phosphatase Troponin T < 0.010 Total Protein Albumin Albumin/Globulin Ratio Lipase TSH HCG, Qual AG 11, Bicarb 21; not in DKA or HHNKS CXR: no acute cardiopulmonary process CTA chest: no PE or aortic dissection EKG: HR 108, SR, nml intervals, no significant ST changes in contiguous leads Diff dz: unclear etiology. Possibly psychogenic. Pneumonia, PE, pneumothorax, aortic dissection ruled out. ACS unlikely. Critical care attestation.: If time is entered above; I have spent that time in minutes in the direct care of this critically ill patient, excluding procedure time.
[2022-01-10] MEDS ORDERED: INSULIN REGULAR, HUMAN 100 UNITS/1 ML SUB-Q ONE (19:56)
--- NOTE | 2022-01-10 20:12 | XRay Report ---
XR chest 1V ap INDICATION / CLINICAL INFORMATION: chest pain. COMPARISON: None available. FINDINGS: SUPPORT DEVICES: None. HEART /PULMONARY VASCULATURE: No significant abnormality. LUNGS / PLEURA: No significant pulmonary or pleural abnormality. No pneumothorax. IMPRESSION: 1. No acute findings. Signer Name: Joseph Mckeon MD Signed: 01/10/2022 8:07 PM Workstation Name: [id number]
--- NOTE | 2022-01-11 00:06 | Cat Scan Report ---
CTA CHEST WITH IV CONTRAST INDICATION: Chest pain; elevated D-dimer. Dyspnea TECHNIQUE: Axial CT images were obtained through the chest after injection of IV contrast. 3 plane MIP reconstru ctions were produced. All CT scans at this location are performed using CT dose reduction for ALARA b y means of automated exposure control. COMPARISON: None available. FINDINGS: PULMONARY ARTERIES: Suboptimal contrast bolus timing. No central embolus identified. A peripheral emb olus cannot be excluded given the relative lack of contrast distally.. AORTA AND ARTERIES: Mild coronary artery calcification.. MEDIASTINUM: No mass, lymphadenopathy or other significant abnormality. The heart is normal in size w ithout a pericardial effusion. The trachea and main bronchi are patent and normal in caliber. LUNGS: 3 mm nodule, right middle lobe. Suspicious consolidation, nodule or mass. No pneumothorax or pleural effusion. ADDITIONAL FINDINGS: None. UPPER ABDOMEN: No acute findings. BONES: No significant osseous abnormality. IMPRESSION: 1. No definite CT evidence for pulmonary embolism. See above comments 2. No acute intrathoracic findings. 3 mm nodule right middle lobe. INCIDENTAL PULMONARY NODULE RECOMMENDATIONS Solid Nodule size <6 mm -- Single or Multiple - Low Risk Patient: No routine follow-up - High Risk Patient: Optional CT at 12 months Note These recommendations do not apply to lung cancer screening, patients with immunosuppression, o r patients with known primary cancer. Note Newly detected indeterminate nodule in persons 35 years of age or older. Persons under the age of 35 should not receive follow-up unless there is a known primary cancer. Low Risk Patient -- minimal or absent history of smoking and of other known risk factors. High Risk Patient -- history of smoking or of other known risk factors. Nodule dimensions are average of long and short axes, rounded to the nearest millimeter. Based on 2017 Fleischner Society Guidelines found in Radiology 2017 284:228-243. https://doi.[email or web address] [email or web address] Signer Name: Miguel Bueno MD Signed: 01/11/2022 12:02 AM Workstation Name: [id number]
[2022-01-11 07:31] VITALS: BP 116/78
--- NOTE | 2022-01-11 10:25 | Electrocardiograph Report ---
[facility] Test Date: 2022-01-10 Test Time: 17:56:49 Pat Name: ANNALISE SOLORIO Department: Room: Gender: F Dispatcher Service Chief: GP : [id number] Requested By: PAPITO YEAGER Order Number: [id number] Reading MD: Shyam Natarajan Measurements Intervals [place] Rate: 109 P: 67 FL: 144 QRS: 47 QRSD: 69 T: 43 QT: 327 QTc: 442 Interpretive Statements Sinus tachycardia No previous ECG available for comparison Electronically Signed On 01-11-2022 10:25:12 EDT by Shyam Natarajan
== END 2022-01-10 23:50 | disposition home or self-care (01) ==
LOC: ED 17:30
DX: R07.9 Chest pain, unspecified (principal); E11.65 Type 2 diabetes mellitus with hyperglycemia; I10 Essential (primary) hypertension; Z79.899 Other long term (current) drug therapy; Z98.890 Other specified postprocedural states; F17.200 Nicotine dependence, unspecified, uncomplicated
CPT/HCPCS: 36415; 71045; 71275; 80053; 82010; 82805; 82962; 83690; 83735; 84443; 84484; 84703; 85025; 85379; 85610; 85730; 93005; 96361; 96374; 99285; J2270; J7030; Q9967; Q0162